=== PATIENT | female | born 1985 | race African-American/Black ===

== ENCOUNTER 2018-04-21 03:28 | Emergency (ER) | payer BC ==
[2018-04-21 03:34] VITALS: BP 105/68
== END 2018-04-21 06:35 | disposition left against medical advice (07) ==
LOC: ER 03:28
DX: Z53.21 Procedure and treatment not carried out due to patient leaving prior to being seen by health care provider (principal)

== ENCOUNTER 2018-05-25 14:29 | Emergency (ER) | payer BC ==
[2018-05-25 14:37] VITALS: BP 105/72
--- NOTE | 2018-05-25 14:42 | ER Document Report ---
ED General - General Chief Complaint: OB Problem (>20wk) Stated Complaint: ABNORMAL BLEEDING Time Seen by Provider: 05/25/18 14:36 Notes: Patient is a 33-year-old female, approximately 10 weeks gravid that presents to the emergency department for chief complaint of vaginal bleeding. Patient states that she started having vaginal bleeding approximately 1 hour prior to ED arrival, states it is more heavy, not just spotting. She has had some lower abdominal cramping as well. She is concerned about this which brought her to the emergency department. She currently rates her pain as a 2 out of 10, describes as aching and cramping in the lower abdomen, nonradiating. Denies having any recent urinary symptoms such as dysuria or hematuria. Denies noting any fevers, chills, night sweats, nausea or vomiting. Past Medical History: Denies chronic medical conditions Past Surgical History: Tendon surgery Social History: Denies tobacco, alcohol or drug use Family History: Reviewed and noncontributory for presenting illness Allergies: Reviewed, see documented allergy list. REVIEW OF SYSTEMS: Unless otherwise stated in this report the patient's positive and negative responses for review of systems for constitutional, eyes, ENT, cardiovascular, respiratory, gastrointestinal, neurological, genitourinary, musculoskeletal, and integumentary systems and related systems to the presenting problem are either as stated in the HPI or were not pertinent or were negative for the symptoms and/or complaints related to the presenting medical problem. PHYSICAL EXAMINATION: Vital signs reviewed, nursing noted reviewed. GENERAL: Well-appearing, well-nourished and in no acute distress. HEAD: Atraumatic, normocephalic. EYES: Eyes appear normal, extraocular movements intact, sclera anicteric, conjunctiva are normal. ENT: nares patent, oropharynx clear without exudates. Moist mucous membranes. NECK: Normal range of motion, supple without lymphadenopathy LUNGS: Breath sounds clear to auscultation bilaterally and equal. No wheezes rales or rhonchi. HEART: Regular rate and rhythm without murmurs ABDOMEN: Soft, nontender, normoactive bowel sounds. No rebound, guarding, or rigidity. No masses appreciated. EXTREMITIES: Nontender, good range of motion, no pitting or edema. NEUROLOGICAL: No focal neurological deficits. Moves all extremities spontaneously Motor and sensory grossly intact on exam. PSYCH: Normal mood, normal affect. SKIN: Warm, Dry, normal turgor, no rashes or lesions noted on exposed skin TRAVEL OUTSIDE OF THE [place] IN LAST 30 DAYS: No - Related Data Allergies/Adverse Reactions: No Known Allergies Allergy (Verified 05/25/18 14:30) Past Medical History - Social History Smoking Status: Never Smoker Family History: Reviewed & Not Pertinent Patient has suicidal ideation: No Patient has homicidal ideation: No Renal/ Medical History: Denies: Hx Peritoneal Dialysis Psychiatric Medical History: Reports: Hx Anxiety Past Surgical History: Reports: Hx Orthopedic Surgery - left hand - Immunizations Immunizations up to date: Yes Hx Diphtheria, Pertussis, Tetanus Vaccination: No Physical Exam - Vital signs Vitals: Temp Pulse Resp BP Pulse Ox 98.4 F 83 16 105/72 100 05/25/18 14:35 05/25/18 14:35 05/25/18 14:35 05/25/18 14:35 05/25/18 14:35 Course - Re-evaluation Re-evalutation: Patient seen and examined vital signs reviewed. Laboratory data and imaging were ordered as appropriate for the patient's presenting symptoms and complaint, with consideration of any critical or life threatening conditions that may be associated with their obtained history and exam as noted above. Results were reviewed when available and demonstrated hCG of 56.36, UA positive for blood, no other signs of urinary tract infection, ultrasound did not demonstrate convincing IUP, there was a cystic mass, and the distal portion of the uterus, which could represent blood products, versus early gestational sac versus pseudo-sac of ectopic , however clinically this is most consistent with blood product, and incomplete , especially associated with the low hCG, and patient's dates, that would have put her at around 10 weeks of gestation The patient was re-evaluated and was stable Evaluation was most consistent with miscarriage, advised follow-up with METALLOGRAPHIC TECHNICIAN, and given reasons to return to the emergency department. Results were discussed with the patient at this point, after careful consideration I feel that that patient can be discharged from the emergency department, the patient was educated treatments and reasons to return to the emergency department based on their presumed diagnosis as noted above, they were advised to followup with a primary care physician in 2-3 days. Patient was agreeable to plan of care. *Note is created using voice recognition software and may contain spelling, syntax or grammatical errors. Laboratory 05/25/18 05/25/18 14:50 14:50 Beta HCG, Quant 56.36 H Total Beta HCG POSITIVE Urine Color RED Urine Appearance CLOUDY Urine pH 6.0 Ur Specific [place] 1.010 Urine Protein 30 H Urine Glucose (UA) NEGATIVE Urine Ketones NEGATIVE Urine Blood LARGE H Urine Nitrite NEGATIVE Urine Bilirubin NEGATIVE Urine Urobilinogen NEGATIVE Ur Leukocyte Esterase NEGATIVE Urine RBC (Auto) >182 Squamous Epi Cells Auto 30 Urine Mucus (Auto) RARE Urine Ascorbic Acid NEGATIVE Obstetrics Ultrasound 05/25/18 14:41 IMPRESSION: 1. 0.9 cm complex cystic area at the lower uterine segment, may represent blood products, a gestational sac of on early intrauterine gestation or a pseudo gestational sac of a nonvisualized ectopic . Follow-up with serial beta HCG and ultrasound recommended to accurately assess status. 2. Nonvisualized ovaries. - Vital Signs Vital signs: Temp Pulse Resp BP Pulse Ox 98.4 F 83 16 105/72 100 05/25/18 14:35 05/25/18 14:35 05/25/18 14:35 05/25/18 14:35 05/25/18 14:35 - Laboratory Laboratory results interpreted by me: 05/25/18 05/25/18 14:50 14:50 Beta HCG, Quant 56.36 H Urine Protein 30 H Urine Blood LARGE H Discharge - Discharge Clinical Impression: Miscarriage Condition: Stable Disposition: HOME, SELF-CARE Instructions: Miscarriage Impending ([facility]) Additional Instructions: Please follow-up with METALLOGRAPHIC TECHNICIAN, and do not hesitate to return to the emergency department, if you are having further and continuous bleeding, or experience lightheadedness, dizziness, or joint like you may pass out. Referrals: [facility] [Provider Group] - Follow up tomorrow
[2018-05-25 15:23] LABS: APPEARANCE,URINE CLOUDY; BILIRUBIN,URINE NEGATIVE (NEGATIVE); COLOR,URINE RED; GLUCOSE, URINE NEGATIVE (NEGATIVE); KETONES,URINE NEGATIVE (NEGATIVE); LEUKOCYTE ESTERASE,URINE NEGATIVE (NEGATIVE); NITRITE,URINE NEGATIVE (NEGATIVE); PROTEIN,URINE 30 mg/dL (NEGATIVE); UROBILINOGEN,URINE NEGATIVE mg/dL (<2.0)
--- NOTE | 2018-05-25 16:18 | RADIOLOGY REPORT (SQ) ---
EXAM DESCRIPTION: U/S OB TRANSVAGINAL W/O DOP COMPLETED DATE/TIME: 05/25/2018 3:59 pm REASON FOR STUDY: vaginal bleeding, est 10wks gravid COMPARISON: None. TECHNIQUE: Transvaginal static and realtime grayscale images acquired of the pelvis. Additional oswaldo cted spectral and color Doppler images recorded. All images stored on PACs. CLINICAL AGE: 7 weeks 5 days BHCG: Not available. LIMITATIONS: None. FINDINGS: UTERUS: The uterus measures 9.1 x 5.2 x 6.0 cm. There is a 0.9 cm cystic area with application internship al echogenicity at the lower uterine segment. The cervix is closed and measures 2.9 cm in length. RIGHT ADNEXA: Ovary not identified due to poor acoustical window. No adnexal free fluid. No adnexal masses. LEFT ADNEXA: Ovary not identified due to poor acoustical window. No adnexal free fluid. No adnexal masses. FREE FLUID: None. IMPRESSION: 1. 0.9 cm complex cystic area at the lower uterine segment, may represent blood product s, a gestational sac of on early intrauterine gestation or a pseudo gestational sac of a nonvisualize d ectopic . Follow-up with serial beta HCG and ultrasound recommended to accurately assess status. 2. Nonvisualized ovaries. TECHNICAL DOCUMENTATION: JOB ID: [id number] 2010 [employer]- All Rights Reserved Reading location - IP/workstation name: [email or web address]
== END 2018-05-25 16:36 | disposition home or self-care (01) ==
LOC: ER 14:29
DX: O03.9 Complete or unspecified spontaneous abortion without complication (principal); R10.30 Lower abdominal pain, unspecified
CPT/HCPCS: 36415; 76817; 81001; 84702; 87086; 99284

== ENCOUNTER 2019-08-13 14:39 | Emergency (ER) | payer BC, MEDICAID ==
[2019-08-13] MEDS ORDERED: BUTALB/ACETAMINOPHEN/CAFFEINE 1 TAB EACH PO ONE (15:29)
[2019-08-13] MEDS ORDERED: NORMAL SALINE 1000 ML 1,000 ML IV ONE (15:29)
--- NOTE | 2019-08-13 15:31 | ER Document Report ---
ED Medical Screen (RME) - General Chief Complaint: Headache Stated Complaint: HEADACHE/DIZZY/HEART RACING SENSATION Time Seen by Provider: 08/13/19 15:22 Mode of Arrival: Ambulatory Information source: Patient Notes: Patient presents complaining of severe headache for the past 4 days that has gradually worsened. Patient states that she miscarried 4 days ago. Patient states that she has had dizziness in which she feels as though she has got a pass out. Patient denies any abdominal tenderness although does continue to have vaginal bleeding. Patient states that she initially thought the headache was due to a change in her contact lens prescription. Patient went to the giant tire repairer today and got her contact prescription straightened out. Patient denies any fever nausea or vomiting. I have greeted and performed a rapid initial assessment of this patient. A comprehensive ED assessment and evaluation of the patient, analysis of test results and completion of the medical decision making process will be conducted by additional ED providers. TRAVEL OUTSIDE OF THE [place] IN LAST 30 DAYS: No - Related Data Allergies/Adverse Reactions: No Known Allergies Allergy (Verified 08/13/19 15:20) Past Medical History - Social History Chew tobacco use (# tins/day): No Frequency of alcohol use: None Drug Abuse: None Renal/ Medical History: Denies: Hx Peritoneal Dialysis Psychiatric Medical History: Reports: Hx Anxiety Past Surgical History: Reports: Hx Orthopedic Surgery - left hand - Immunizations Immunizations up to date: Yes Hx Diphtheria, Pertussis, Tetanus Vaccination: No Physical Exam - Vital signs Vitals: Temp Pulse Resp BP Pulse Ox 98.8 F 85 16 102/57 L 100 08/13/19 14:57 08/13/19 14:57 08/13/19 14:57 08/13/19 14:57 08/13/19 14:57 - Neurological Neuro grossly intact: Yes Cognition: Normal [place] Coma Scale Eye Opening: Spontaneous [place] Coma Scale Verbal: Oriented Marcie Coma Scale Motor: Obeys Commands [place] Coma Scale Total: 15 Course - Vital Signs Vital signs: Temp Pulse Resp BP Pulse Ox 98.8 F 85 16 102/57 L 100 08/13/19 14:57 08/13/19 14:57 08/13/19 14:57 08/13/19 14:57 08/13/19 14:57
[2019-08-13 16:58] LABS: ABSOLUTE EOSINOPHILS # (AUTO) 0.1 10^3/uL (0.0-0.6); ABSOLUTE LYMPHOCYTES (AUTO) 1.1 10^3/uL (0.5-4.7); ABSOLUTE MONOCYTES (AUTO) 0.3 10^3/uL (0.1-1.4); ABSOLUTE NEUT (AUTO) 3.7 10^3/uL (1.7-8.2); BASOPHILS % (AUTO) 0.7 % (0-2); EOSINOPHILS % (AUTO) 1.2 % (0-6); HEMATOCRIT 22.9 % (36.0-47.0); LYMPHOCYTES % (AUTO) 20.4 % (13-45); MEAN CORPUSCULAR HEMOGLOBIN 30.7 pg (27.0-33.4); MEAN CORPUSCULAR HGB CONC 34.6 g/dL (32.0-36.0); MEAN CORPUSCULAR VOLUME 89 fl (80-97); MONOCYTES % (AUTO) 6.2 % (3-13); PLATELET COUNT 205 10^3/uL (150-450); RED BLOOD COUNT 2.58 10^6/uL (3.72-5.28); RED CELL DISTRIBUTION WIDTH 13.3 % (11.5-14.0); SEGMENTED NEUTROPHILS % (AUTO) 71.5 % (42-78); TOTAL CELLS COUNTED % (AUTO) 100 %; WHITE BLOOD COUNT 5.2 10^3/uL (4.0-10.5)
[2019-08-13 17:01] LABS: HEMOGLOBIN 7.9 g/dL (12.0-15.5)
--- NOTE | 2019-08-13 17:10 | RADIOLOGY REPORT (SQ) ---
EXAM DESCRIPTION: CT HEAD WITHOUT COMPLETED DATE/TIME: 08/13/2019 4:51 pm REASON FOR STUDY: LINDSEY COMPARISON: None. TECHNIQUE: Axial images acquired through the brain without intravenous contrast. Images reviewed wi th bone, brain and subdural windows. Additional sagittal and coronal reconstructions were generated. Images stored on PACS. All CT scanners at this facility use dose modulation, iterative reconstruction, and/or weight based d osing when appropriate to reduce radiation dose to as low as reasonably achievable (ALARA). [facility]: Dose Right [facility]: CareDose [facility]: Dose Right [facility]: Teradose 4D [facility]: Evotec RADIATION DOSE: CT Rad equipment meets quality standard of care and radiation dose reduction techniq ues were employed. CTDIvol: 53.2 mGy. DLP: 1044 mGy-cm. mGy. LIMITATIONS: None. FINDINGS: VENTRICLES: Normal size and contour. CEREBRUM: No masses. No hemorrhage. No midline shift. No evidence for acute infarction. Normal gra y/white matter differentiation. No areas of low density in the white matter. CEREBELLUM: No masses. No hemorrhage. No alteration of density. No evidence for acute infarction. EXTRAAXIAL SPACES: No fluid collections. No masses. ORBITS AND GLOBE: No intra- or extraconal masses. Normal contour of globe without masses. CALVARIUM: No fracture. PARANASAL SINUSES: No fluid or mucosal thickening. SOFT TISSUES: No mass or hematoma. OTHER: No other significant finding. IMPRESSION: NORMAL BRAIN CT WITHOUT CONTRAST. EVIDENCE OF ACUTE STROKE: NO. COMMENT: Quality ID # [id number]: Final reports with documentation of one or more dose reduction techniques (e.g., Automated exposure control, adjustment of the mA and/or kV according to patient size, use of iterative reconstruction technique) TECHNICAL DOCUMENTATION: JOB ID: [id number] [employer]- All Rights Reserved Reading location - IP/workstation name: [email or web address]
[2019-08-13 17:15] LABS: ANION GAP 6 (5-19); BLOOD UREA NITROGEN 5 mg/dL (7-20); CALCIUM 8.8 mg/dL (8.4-10.2); CARBON DIOXIDE 27 mmol/L (22-30); CHLORIDE 105 mmol/L (98-107); GLUCOSE 82 mg/dL (75-110)
--- NOTE | 2019-08-13 18:33 | RADIOLOGY REPORT (SQ) ---
EXAM DESCRIPTION: U/S OB TRANSVAGINAL W/O DOP COMPLETED DATE/TIME: 08/13/2019 6:15 pm REASON FOR STUDY: vag bleeding, pt reports miscarriage 4 day ago COMPARISON: 05/25/2018 TECHNIQUE: Transvaginal static and realtime grayscale images acquired of the pelvis. Additional oswaldo cted spectral and color Doppler images recorded. All images stored on PACs. C,486 CLINICAL DATES: LMP 06/12/2019. 8 weeks 6 days. LIMITATIONS: None. FINDINGS: No intrauterine is seen at this time. UTERUS: No masses. No anomalies. The endometrium is thickened and heterogeneous. CERVICAL LENGTH: 2.9 cm. Closed. RIGHT ADNEXA: Normal ovary with normal vascular flow. 1.8 x 1.3 x 1.3 cm. No adnexal free fluid. No adnexal masses. LEFT ADNEXA: Normal ovary with normal vascular flow. 2.6 x 3 x 2.5 cm. 1.8 x 2.1 x 1.9 cm cyst. No adnexal free fluid. No adnexal masses. FREE FLUID: None. OTHER: No other significant finding. IMPRESSION: There is no intrauterine gestation at this time. There is a thickened, heterogeneous en dometrium. Products of conception could be present. TECHNICAL DOCUMENTATION: JOB ID: [id number]- All Rights Reserved rev-12/14 Reading location - IP/workstation name: [email or web address]
--- NOTE | 2019-08-13 19:10 | ER Document Report ---
ED General - General Chief Complaint: Headache Stated Complaint: HEADACHE/DIZZY/HEART RACING SENSATION Time Seen by Provider: 08/13/19 15:22 Mode of Arrival: Ambulatory TRAVEL OUTSIDE OF THE [place] IN LAST 30 DAYS: No - HPI Notes: Patient is a 34-year-old female, , several days status post her third miscarriage, who presents to the emergency department for evaluation of head ache. She states that she started to have her miscarriage, then developed a headache. She describes it as a frontal, sharp and intense headache, that came on gradually on Sunday. She states that it was improved by the medication she received here earlier, but now is "starting to come back." This is not the worst headache of her life. She denies any fevers or chills. No nausea or vomiting. Her vaginal bleeding has slowed significantly, she is only needed 1 pad so far today. She denies any visual changes, seeing, speaking, swallowing without difficulty. She states she has felt lightheaded and dizzy, denies any vertiginous symptoms. - Related Data Allergies/Adverse Reactions: No Known Allergies Allergy (Verified 08/13/19 15:20) Home Medications: None Past Medical History - General Information source: Patient - Social History Smoking Status: Never Smoker Chew tobacco use (# tins/day): No Frequency of alcohol use: None Drug Abuse: None Family History: Reviewed & Not Pertinent Patient has suicidal ideation: No Patient has homicidal ideation: No Renal/ Medical History: Denies: Hx Peritoneal Dialysis Psychiatric Medical History: Reports: Hx Anxiety Past Surgical History: Reports: Hx Orthopedic Surgery - left hand tendon surgery - Immunizations Immunizations up to date: Yes Hx Diphtheria, Pertussis, Tetanus Vaccination: No Review of Systems - Review of Systems Constitutional: No symptoms reported EENT: No symptoms reported Cardiovascular: No symptoms reported Respiratory: No symptoms reported Gastrointestinal: No symptoms reported Genitourinary: No symptoms reported Female Genitourinary: See HPI Musculoskeletal: No symptoms reported Skin: No symptoms reported Neurological/Psychological: See HPI Physical Exam - Vital signs Vitals: Temp Pulse Resp BP Pulse Ox 98.8 F 85 16 102/57 L 100 08/13/19 14:57 08/13/19 14:57 08/13/19 14:57 08/13/19 14:57 08/13/19 14:57 - Notes Notes: Vital signs reviewed, please refer to chart. Head is normocephalic, atraumatic. Pupils equal round, reactive to light. Neck is supple without meningismus. Heart is regular rate and rhythm. Lungs are clear to auscultation bilaterally. Abdomen is soft, nontender, normoactive bowel sounds throughout. Extremities without cyanosis, clubbing. Posterior calves are nontender. Peripheral pulses are equal. Skin is warm and dry. Patient is awake, alert, oriented x3. Cranial nerves II - XII are grossly intact without focal neurological deficits. Strength is plus 5 out of 5 bilateral upper and lower extremities. Sensation is intact. Reflexes symmetrical. Intact [id number], rapid alternating movements, [id number]. Course - Re-evaluation Re-evalutation: 08/13/19 19:11 Patient presents emergency department for evaluation. She has a normal exam. Her laboratory investigations did reveal a significant anemia. She had heavy vaginal bleeding with her miscarriage, but this is slowed. The patient is told she should take iron supplements. She voiced understanding to this. She has no other major medical issues. Her vital signs are otherwise unremarkable. I do not see any reason to transfuse her at this time, she is amenable to this plan. We will have her follow-up with OB, primary care. She is to return to the ED with worsening or new concerning symptoms of any sort. - Vital Signs Vital signs: Temp Pulse Resp BP Pulse Ox 98.8 F 85 16 102/57 L 100 08/13/19 14:57 08/13/19 14:57 08/13/19 14:57 08/13/19 14:57 08/13/19 14:57 - Laboratory Result Diagrams: 08/13/19 16:40 08/13/19 16:40 Laboratory results interpreted by me: 08/13/19 08/13/19 08/13/19 16:40 16:40 16:40 RBC 2.58 L Hgb 7.9 L Hct 22.9 L BUN 5 L Beta HCG, Quant 8485.80 H - Diagnostic Test Radiology reviewed: Reports reviewed Radiology results interpreted by me: 08/13/19 19:[address] 08/13/19 15:29 IMPRESSION: NORMAL BRAIN CT WITHOUT CONTRAST. EVIDENCE OF ACUTE STROKE: NO. Obstetrics Ultrasound 08/13/19 17:03 IMPRESSION: There is no intrauterine gestation at this time. There is a thickened, heterogeneous endometrium. Products of conception could be present. - EKG Interpretation by Me Additional EKG results interpreted by me: 08/13/19 19:18 Sinus mechanism with rate of 76 bpm. PVC noted. Normal axis and intervals, nonspecific ST changes, but no acute changes concerning for infarction. Discharge - Discharge Clinical Impression: Blood loss anemia, Dizziness Headache Qualifiers: Headache type: unspecified Headache chronicity pattern: acute headache Condition: Stable Disposition: HOME, SELF-CARE Instructions: Headache ([facility]), Anemia ([facility]) Additional Instructions: Rest, stay well-hydrated. Take medications as directed. Follow-up with primary care and COLLECTION ANALYST. If your bleeding resumes, or you develop worsening or new concerning symptoms of any sort, please return immediately to the emergency department for reevaluation.
[2019-08-13 19:55] VITALS: BP 103/47
--- NOTE | 2019-08-14 01:02 | EKG REPORT ---
SEVERITY:- BORDERLINE ECG - SINUS RHYTHM VENTRICULAR PREMATURE COMPLEX BORDERLINE T ABNORMALITIES, ANTERIOR LEADS : Confirmed by: Huong Cook MD 14-Aug-2019 01:01:28
== END 2019-08-13 20:08 | disposition home or self-care (01) ==
LOC: ER 14:39
DX: O03.9 Complete or unspecified spontaneous abortion without complication (principal); D50.0 Iron deficiency anemia secondary to blood loss (chronic); R42 Dizziness and giddiness; R51 Headache
CPT/HCPCS: 93005; 99284; 96360; 86900; 86901; 36415; 86850; 84702; 85025; 80048; 76817; 70450; 93010; J3490; J7030

== ENCOUNTER 2019-12-07 18:09 | Emergency (ER) | payer MEDICAID ==
--- NOTE | 2019-12-07 19:12 | ER Document Report ---
ED Oral Problem - General Chief Complaint: Toothache Stated Complaint: TOOTHACHE Time Seen by Provider: 12/07/19 19:11 Mode of Arrival: Ambulatory Information source: Patient Notes: 34-year-old female with no previous medical problems presents to the emergency room complaining of right upper posterior dental pain. Patient states it was previously fractured she bit into a pretzel further breaking the tooth. Tried using Orajel without relief. No other pain medication. Denies any chance of . TRAVEL OUTSIDE OF THE [place] IN LAST 30 DAYS: No - Related Data Allergies/Adverse Reactions: No Known Allergies Allergy (Verified 12/07/19 18:18) Past Medical History - General Information source: Patient - Social History Smoking Status: Never Smoker Chew tobacco use (# tins/day): No Frequency of alcohol use: None Drug Abuse: None Family History: Reviewed & Not Pertinent Patient has homicidal ideation: No Renal/ Medical History: Denies: Hx Peritoneal Dialysis Psychiatric Medical History: Reports: Hx Anxiety Past Surgical History: Reports: Hx Orthopedic Surgery - left hand tendon surgery - Immunizations Immunizations up to date: Yes Hx Diphtheria, Pertussis, Tetanus Vaccination: No Review of Systems - Review of Systems Constitutional: No symptoms reported EENT: Dental problem Cardiovascular: No symptoms reported Respiratory: No symptoms reported Skin: No symptoms reported -: Yes All other systems reviewed and negative Physical Exam - Vital signs Vitals: Temp Pulse Resp BP Pulse Ox 98.9 F 75 17 110/65 100 12/07/19 18:13 12/07/19 18:13 12/07/19 18:13 12/07/19 18:13 12/07/19 18:13 - General General appearance: Appears well, Alert In distress: Moderate - HEENT Head: Normocephalic Mouth/Lips: Dental fracture - right upper posterior molar fractured with erythema and swelling around tooth no abscess palpated. Teeth diagram: 1 - FRACTURED WITH ERYTHEMA AND SWELLING Neck: Normal - Respiratory Respiratory status: No respiratory distress Chest status: Nontender Breath sounds: Normal Chest palpation: Normal - Cardiovascular Rhythm: Regular Heart sounds: Normal auscultation Murmur: No - Neurological Neuro grossly intact: Yes Cognition: Normal Orientation: AAOx4 [place] Coma Scale Eye Opening: Spontaneous [place] Coma Scale Verbal: Oriented [place] Coma Scale Motor: Obeys Commands [place] Coma Scale Total: 15 Speech: Normal Motor strength normal: LUE, RUE, LLE, RLE Sensory: Normal - Skin Skin Temperature: Warm Skin Moisture: Dry Skin Color: Normal Course - Re-evaluation Re-evalutation: 12/07/19 19:44 Discussed diagnosis with patient. Need to follow-up with a dentist as soon as possible. Also counseled that she can get temporary dental cement at the pharmacy. Medications as prescribed. Given strict return to emergency room guidelines. Return for any new or worsening symptoms. All questions were answered. Patient verbalized understanding and agrees with plan of care. - Vital Signs Vital signs: Temp Pulse Resp BP Pulse Ox 98.9 F 75 17 110/65 100 12/07/19 18:19 12/07/19 18:13 12/07/19 18:13 12/07/19 18:13 12/07/19 18:13 Discharge - Discharge Clinical Impression: Pain, dental Fractured tooth Qualifiers: Encounter type: initial encounter Fracture type: closed Qualified Code(s): S02.5XXA - Fracture of tooth (traumatic), initial encounter for closed fracture Condition: Stable Disposition: HOME, SELF-CARE Instructions: Toothache ([facility]), Oral Narcotic Medication ([facility]), [facility], Penicillin V K ([facility]) Additional Instructions: Soft diet avoid any food with nuts or seeds. Can take Tylenol and Motrin as needed for pain. Antibiotics as prescribed. Follow-up with a dentist as dis cussed. Return for any new or worsening symptoms. Prescriptions: Penicillin V Potassium [Penicillin Vk 500 mg Tablet] 500 mg PO QID 10 Days #40 tablet Referrals: [facility] [Provider Group] - Follow up as needed
[2019-12-07] MEDS ORDERED: AMOXICILLIN TRIHYDRATE 500 MG CAPSULE PO ONE (19:33)
[2019-12-07] MEDS ORDERED: HYDROCODONE/ACETAMINOPHEN 5-325 MG (6 TAB/ER DISP) PO PRN (19:34)
[2019-12-07] MEDS ORDERED: IBUPROFEN 600 MG TABLET PO ONE (19:36)
[2019-12-07 20:09] VITALS: BP 108/84
== END 2019-12-07 20:14 | disposition home or self-care (01) ==
LOC: ER 18:09
DX: S02.5XXA Fracture of tooth (traumatic), initial encounter for closed fracture (principal); X58.XXXA Exposure to other specified factors, initial encounter
CPT/HCPCS: 99282; J3490